=== PATIENT | male | born 1970 | race African-American/Black ===

== ENCOUNTER 2022-08-05 06:07 | Inpatient (IN) | payer MEDICAID ==
[~2022-08-05] VITALS: Ht 170.2 cm; Wt 88.6 kg
[2022-08-05] MEDS ORDERED: BEMP180T (07:59)
[2022-08-05] MEDS ORDERED: AZIL1TAB3 PO (07:59)
[2022-08-05] MEDS ORDERED: ecotrin (07:59)
[2022-08-05] MEDS ORDERED: EZET10TA13 PO (07:59)
[2022-08-05] MEDS ORDERED: HYDR-4135 PO (08:05)
[2022-08-05] MEDS ORDERED: RIVA20TA PO (08:05)
[2022-08-05] MEDS ORDERED: AMLO10TA4 PO (08:05)
[2022-08-05] MEDS ORDERED: LIP40 PO (08:05)
[2022-08-05] MEDS ORDERED: IODIXANOL 320MG/ML 100 ML BOTTLE IV ONE (08:58)
[2022-08-05] MEDS ORDERED: MIDAZOLAM HCL 2 MG/2 ML VIAL ONE ×2 (08:58→09:45)
[2022-08-05] MEDS ORDERED: FENTANYL CITRATE/PF 50MCG/ML 2ML VIAL ONE (08:58)
[2022-08-05] MEDS ORDERED: LIDOCAINE HCL 1% 20ML VIAL (Pyxis) INJ ONE ×2 (08:59→09:23)
[2022-08-05] MEDS ORDERED: HEPARIN 1000 UNITS/ML 10ML ONE (09:33)
[2022-08-05] MEDS ORDERED: ASPIRIN 325MG TABLET ONE (10:01)
[2022-08-05] MEDS ORDERED: CLOPIDOGREL 75MG TABLET ONE (10:01)
[2022-08-05] MEDS ORDERED: ACETAMINOPHEN 325MG TABLET PO PRN ×2 (10:30→11:30)
[2022-08-05] MEDS ORDERED: ATROPINE SULFATE 1MG/10ML SYR IV PRN (10:30)
[2022-08-05] MEDS ORDERED: ONDANSETRON HCL 4MG/2ML INJ IV PRN ×2 (10:30→11:30)
[2022-08-05 10:59] VITALS: BP 177/98
[2022-08-05 11:11] VITALS: BP 177/98
[2022-08-05] MEDS ORDERED: NALOXONE HCL 0.4MG/ML VIAL IV PRN (11:30)
[2022-08-05] MEDS ORDERED: HYDROCODONE/ACETAMINOPHEN 5/325MG TABLET PO PRN (11:30)
[2022-08-05] MEDS ORDERED: DEXTROSE 50% WATER 50ML SYRINGE IV PRN (11:30)
[2022-08-05] MEDS ORDERED: AMLODIPINE 10MG TABLET PO SCH (11:30)
[2022-08-05] MEDS ORDERED: BLOOD SUGAR DIAGNOSTIC STRIP TEST SCH (11:50)
[2022-08-05 12:00] VITALS: BP 177/98
[2022-08-05] MEDS ORDERED: INSULIN LISPRO 100 UNITS/ML SUBCUT SCH (12:20)
[2022-08-05 14:00] VITALS: BP 177/98
[2022-08-05 15:08] VITALS: BP 153/80
[2022-08-05] MEDS ORDERED: HYDRALAZINE HCL 50MG TABLET PO SCH (21:00)
[2022-08-05] MEDS ORDERED: ATORVASTATIN CALCIUM 40MG TABLET PO SCH (21:00)
[2022-08-06] MEDS ORDERED: ASPIRIN 325MG TABLET PO SCH (09:00)
[2022-08-06] MEDS ORDERED: CLOPIDOGREL 75MG TABLET PO SCH (09:00)
== END 2022-08-05 16:30 | disposition left against medical advice (07) | DRG 182 ==
LOC: CCL 06:07 → 3WST 06:08
PROVIDERS: ADMIT Specialist; ATTEND Specialist
PROC: 047D3DZ Dilation of Left Common Iliac Artery with Intraluminal Device, Percutaneous Approach (ICD-10-PCS; principal; 2022-08-05)
PROC: B4101ZZ Fluoroscopy of Abdominal Aorta using Low Osmolar Contrast (ICD-10-PCS; 2022-08-05)
DX: T82.856A Stenosis of peripheral vascular stent, initial encounter (principal); I74.5 Embolism and thrombosis of iliac artery; I70.201 Unspecified atherosclerosis of native arteries of extremities, right leg; I70.8 Atherosclerosis of other arteries; I12.9 Hypertensive chronic kidney disease with stage 1 through stage 4 chronic kidney disease, or unspecified chronic kidney disease; I82.509 Chronic embolism and thrombosis of unspecified deep veins of unspecified lower extremity; E78.5 Hyperlipidemia, unspecified; N18.2 Chronic kidney disease, stage 2 (mild); Z53.29 Procedure and treatment not carried out because of patient's decision for other reasons; Z79.82 Long term (current) use of aspirin; Z79.02 Long term (current) use of antithrombotics/antiplatelets; Z79.01 Long term (current) use of anticoagulants; Y83.8 Other surgical procedures as the cause of abnormal reaction of the patient, or of later complication, without mention of misadventure at the time of the procedure
CPT/HCPCS: 37221; 75710; 82962; 83036; 85347; C1725; C1760; C1769; C1876; C1893; J1644; J2250; J3010; J3490; Q9967